=== PATIENT | female | born 1995 | race Caucasian/White ===

== ENCOUNTER 2019-01-27 23:12 | Emergency (ER) | payer OTHER ==
[~2019-01-27] VITALS: Ht 157.5 cm; Wt 49.4 kg
[2019-01-27 23:27] VITALS: BP 129/72; PULSE 64; RESP 18; Ht 157.5 cm; Wt 49.4 kg
--- NOTE | 2019-01-28 06:46 | ERD ---
ER Documentation Chief Complaint Chief Complaint right earache/sore throat x 3 days HPI This is an otherwise healthy 23-year-old female presents to the ED complaining of right earache and sore throat x3 days. Patient states she had an upper patient's respiratory status has stabilized while in the department and is appropriate for outpatient work up. Exam and work up not consistent w/ impending respiratory failure or cardiovascular collapse. Infection for the past 1 month. She states her symptoms have improved but she continues to have a sensation of foreign body and fullness in her right ear. She does have some decreased hearing in her right ear. Denies any trauma. Denies any dizziness. Denies any nausea or vomiting. Denies any residual cough. No other complaints. ROS All systems reviewed and are negative except as per history of present illness. Allergies Allergies: Coded Allergies: No Known Drug Allergies (Verified Allergy, Unknown, 01/27/19) PMhx/Soc Medical and Surgical Hx: pt denies Medical Hx, pt denies Surgical Hx Hx Alcohol Use: No Hx Substance Use: No Hx Tobacco Use: No Smoking Status: Never smoker FmHx Family History: No diabetes Physical Exam Vitals Vital Signs Date Temp Pulse Resp B/P (MAP) Pulse Ox O2 O2 Flow FiO2 Time Delivery Rate 01/27/19 97.0 64 18 129/72 99 23:27 (91) Physical Exam Const: No acute distress Head: Atraumatic Eyes: Normal Conjunctiva ENT: Normal External Ears, Nose and Mouth. + Right TM impacted with cerumen and debris. No mastoid tenderness. External auditory canal normal. Left TM and external auditory canal normal. No tonsillar edema or exudates. Uvula midline. Neck: Full range of motion. No meningismus. Resp: Clear to auscultation bilaterally Neur: Awake and alert Psych: Normal Mood and Affect Procedures/MDM MEDICAL DECISION MAKING: This is a 23-year-old female presents with right ear pain status post upper respiratory infection for the past month. Patient has evidence of debris and cerumen in her right ear. Ear was irrigated with successful removal of the debris and cerumen. Patient felt significantly better. Patient has no evidence of otitis media, otitis externa, malignant otitis externa, mastoiditis, meningitis, strep pharyngitis, peritonsillar abscess or any other emergent process at this time. Patient was discharged home with PCP follow-up and strict return precautions. PRESCRIPTIONS: None SPECIALIST FOLLOW UP RECOMMENDED: None Patient has been advised to follow up with primary care in 1-2 days. Departure Diagnosis: Primary Impression: Impacted cerumen of right ear Condition: Stable Patient Instructions: Cerumen Impaction, Home Care, Ear Wax, Treated Referrals: COMMUNITY CLINICS YOU HAVE RECEIVED A MEDICAL SCREENING EXAM AND THE RESULTS INDICATE THAT YOU DO NOT HAVE A CONDITION THAT REQUIRES URGENT TREATMENT IN THE EMERGENCY DEPARTMENT. FURTHER EVALUATION AND TREATMENT OF YOUR CONDITION CAN WAIT UNTIL YOU ARE SEEN IN YOUR DOCTORS OFFICE WITHIN THE NEXT 1-2 DAYS. IT IS YOUR RESPONSIBILITY TO MAKE AN APPOINTMENT FOR FOLOW-UP CARE. IF YOU HAVE A PRIMARY DOCTOR --you should call your primary doctor and schedule an appointment IF YOU DO NOT HAVE A PRIMARY DOCTOR YOU CAN CALL OUR PHYSICIAN REFERRAL HOTLINE AT IF YOU CAN NOT AFFORD TO SEE A PHYSICIAN YOU CAN CHOSE FROM THE FOLLOWING [facility] [address] [facility] [address] [facility] [address] [facility] [address] [facility] [address] [facility]. [facility]. [address] [facility]. [facility] YOU HAVE RECEIVED A MEDICAL SCREENING EXAM AND THE RESULTS INDICATE THAT YOU DO NOT HAVE A CONDITION THAT REQUIRES URGENT TREATMENT IN THE EMERGENCY DEPARTMENT. FURTHER EVALUATION AND TREATMENT OF YOUR CONDITION CAN WAIT UNTIL YOU ARE SEEN IN YOUR DOCTORS OFFICE WITHIN THE NEXT 1-2 DAYS. IT IS YOUR RESPONSIBILITY TO MAKE AN APPOINTMENT FOR FOLOW-UP CARE. IF YOU HAVE A PRIMARY DOCTOR --you should call your primary doctor and schedule and appointment IF YOU DO NOT HAVE A PRIMARY DOCTOR YOU CAN CALL OUR PHYSICIAN REFERRAL HOTLINE AT . IF YOU CAN NOT AFFORD TO SEE A PHYSICIAN YOU CAN CHOSE FROM THE FOLLOWING [facility]: [facility] [address] [place] [address] [facility] [address] [place] [address] [facility] [address] [place] [address] Additional Instructions: Call your primary care doctor TOMORROW for an appointment during the next 2-4 days and bring all the information and medications prescribed. If the symptoms get worse and your provider is unavailable, return to the Emergency Department immediately. DANIEL FARRELL PA-C Jan 28, 2019 05:59
== END 2019-01-28 03:15 | disposition home or self-care (01) ==
LOC: FTE 23:12
DX: H61.21 Impacted cerumen, right ear (principal)
CPT/HCPCS: 69209; Z7502